=== PATIENT | male | born 1990 | race African-American/Black ===

== ENCOUNTER 2018-10-24 01:20 | Emergency (ER) | payer SELFPAY ==
[~2018-10-24] VITALS: Ht 180.3 cm; Wt 88.5 kg
[2018-10-24 01:45] VITALS: BP 141/101
[2018-10-24 02:22] LABS: BILIRUBIN,URINE NEGATIVE (NEG); CLARITY,URINE CLEAR; COLOR,URINE YELLOW; NITRITE,URINE NEGATIVE (NEG); PROTEIN,URINE NEGATIVE (NEG-TRACE)
[2018-10-24 02:49] LABS: BACTERIA,URINE 0 /HPF (0-FEW); RBC,URINE OCC /HPF (0-2); SQUAMOUS EPITHELIAL CELL,UR OCC /LPF
[2018-10-24] MEDS ORDERED: DICL50TA4 PO (03:04)
[2018-10-24] MEDS ORDERED: METH4TAB2 PO (03:04)
--- NOTE | 2018-10-24 03:04 | PHYS DOC ---
Past Medical History Past Medical History: No Pertinent History Past Surgical History: No Surgical History Alcohol Use: None Drug Use: None Adult General Chief Complaint Chief Complaint: RIB PAIN HPI HPI Patient is a 28-year-old male presents with complaint of left posterior lateral rib pain that has been present for the last few days. Patient denies any recent injuries. He states the pain is about a 6 out of 10 and states that it worsens with certain movements and with deep breaths. He states that at times as a dull pain and it times it sharp and stabbing. Review of Systems Review of Systems Constitutional: Denies fever or chills [] Respiratory: Denies cough or shortness of breath [] Cardiovascular: No additional information not addressed in HPI [] : Denies dysuria or hematuria [] Musculoskeletal: Complains of posterolateral left sided rib pain [] Integument: Denies rash or skin lesions [] Physical Exam Physical Exam Constitutional: Well developed, well nourished, no acute distress, non-toxic appearance. [] Cardiovascular:Heart rate regular rhythm, no murmur [] Lungs & Thorax: Bilateral breath sounds clear to auscultation [] Abdomen: Bowel sounds normal, soft, no tenderness. [] Skin: Warm, dry, no erythema, no rash. [] Back: There is tenderness to palpation along the left sided lower posterolateral rib margin. [] Extremities: No tenderness, no cyanosis, no clubbing, ROM intact, no edema. [] Current Patient Data Vital Signs Vital Signs Date Time Temp Pulse Resp B/P (MAP) Pulse Ox O2 Delivery O2 Flow Rate FiO2 10/24/18 01:45 98.1 91 16 141/101 (114) 100 Room Air 98.1 Lab Values Laboratory Tests Test 10/24/18 02:07 Urine Collection Type Unknown Urine Color Yellow Urine Clarity Clear Urine pH 6.0 Urine Specific [place] >=1.030 Urine Protein Negative mg/dL (NEG-TRACE) Urine Glucose (UA) Negative mg/dL (NEG) Urine Ketones (Stick) 15 mg/dL (NEG) Urine Blood Negative (NEG) Urine Nitrite Negative (NEG) Urine Bilirubin Negative (NEG) Urine Urobilinogen Dipstick 1.0 mg/dL (0.2 mg/dL) Urine Leukocyte Esterase Negative (NEG) Urine RBC Occ /HPF (0-2) Urine WBC 1-4 /HPF (0-4) Urine Squamous Epithelial Cells Occ /LPF Urine Bacteria 0 /HPF (0-FEW) Urine Mucus Marked /LPF EKG EKG [] Radiology/Procedures Radiology/Procedures [] Course & Med Decision Making Course & Med Decision Making Pertinent Labs and Imaging studies reviewed. (See chart for details) [] Dragon Disclaimer Dragon Disclaimer This electronic medical record was generated, in whole or in part, using a voice recognition dictation system. Departure Departure Impression: Primary Impression: Costochondritis Disposition: HOME, SELF-CARE Condition: STABLE Referrals: NO PCP (PCP) Patient Instructions: Costochondritis Scripts Methylprednisolone (MEDROL) 4 Mg Tab.ds.pk 1 PKG PO UD, #1 PKG Prov: BENNIE GUTIERREZ Jr. DO 10/24/18 Diclofenac Sodium (DICLOFENAC SODIUM) 50 Mg Tablet. 1 TAB PO BID PRN for PAIN, #20 TAB Prov: BENNIE GUTIERREZ Jr. DO 10/24/18 BENNIE GUTIERREZ Jr. DO Oct 24, 2018 03:04
== END 2018-10-24 03:10 | disposition home or self-care (01) ==
LOC: ER 01:20
DX: M94.0 Chondrocostal junction syndrome [Tietze] (principal)
CPT/HCPCS: 81001; 99283